=== PATIENT | female | born 1940 | race Caucasian/White ===

== ENCOUNTER 2019-06-19 07:03 | Day surgery (SDC) | payer OTHER, MEDICARE ==
[2019-06-17 12:03] VITALS: BMI 23.3
[2019-06-19] MEDS ORDERED: PROPOFOL 20 ML ONE ×4 (08:25)
[2019-06-19] MEDS ORDERED: LIDOCAINE HCL/PF 2% SDV 5ML VIAL ONE (08:26)
[2019-06-19 09:18] VITALS: BP 101/58; PULSE 70; TEMP 98
--- NOTE | 2019-06-23 13:42 | PATH ---
Surgical Pathology Report Patient Name: RAQUEL CARBALLO [facility]. Rec. #: [id number] /Age/Gender: 1940 (Age: 78) / F Account: [id number] Location: [facility] Taken: 06/19/2019 Received: 06/19/2019 Reported: 06/23/2019 Physicians: Ian Rivera M.D. Specimen(s) Received A: DUODENUM B: ANTRUM Clinical History Dysphagia Postoperative diagnosis: Mild gastritis Final Diagnosis A. DUODENUM, BIOPSY: DUODENAL MUCOSA WITH NO PATHOLOGIC FINDINGS. B. ANTRUM, BIOPSY: MODERATE CHRONIC ACTIVE GASTRITIS. 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 Electronically Signed Aleyda Lloyd M.D. Gross Description A. Received in formalin, labeled "duodenum" is a lizarraga, irregular portion of soft tissue measuring 0.4 cm. in greatest dimension. The specimen is submitted in toto in one cassette. B. Received in formalin, labeled "antrum" are 2 lizarraga, irregular portions of soft tissue measuring 0.3 and 0.4 cm. in greatest dimension. The specimens are submitted in toto in one cassette. /06/20/2019 saudi/06/20/2019
== END 2019-06-19 09:30 | disposition home or self-care (01) ==
LOC: FASU-ENDO 07:03
PROVIDERS: ATTEND Internal Medicine Gastroenterology
PROC: 0DB68ZX Excision of Stomach, Via Natural or Artificial Opening Endoscopic, Diagnostic (ICD-10-PCS; 2019-06-19)
PROC: 0DB98ZX Excision of Duodenum, Via Natural or Artificial Opening Endoscopic, Diagnostic (ICD-10-PCS; principal; 2019-06-19 08:27)
DX: K29.50 Unspecified chronic gastritis without bleeding (principal); B96.81 Helicobacter pylori [H. pylori] as the cause of diseases classified elsewhere; R13.10 Dysphagia, unspecified; R12 Heartburn
CPT/HCPCS: 88305-TC; 88342-TC